=== PATIENT | male | born 1960 | race Caucasian/White ===

== ENCOUNTER 2017-08-01 10:10 | Emergency (ER) | payer MEDICAID ==
[~2017-08-01] VITALS: Ht 175.3 cm; Wt 81.6 kg
[2017-08-01 10:10] VITALS: BP_SYST 128
[2017-08-01] MEDS ORDERED: KETOROLAC TROMETHAMINE 60 MG/2 ML VIAL IM ONE (11:15)
[2017-08-01 11:48] VITALS: BP_SYST 145
== END 2017-08-01 11:47 | disposition home or self-care (01) ==
LOC: SED 10:10
DX: L03.312 Cellulitis of back [any part except buttock and flank] (principal); R60.0 Localized edema; F17.290 Nicotine dependence, other tobacco product, uncomplicated
CPT/HCPCS: 96372; 99283; J1885

== ENCOUNTER 2019-11-30 19:14 | Inpatient (IN) | payer MEDICAID ==
[~2019-11-30] VITALS: Ht 175.3 cm; Wt 68.0 kg
[2019-11-30 19:24] VITALS: BP_SYST 113
[2019-11-30 20:58] LABS: BASOPHILS % (AUTO) 0.4 % (0.0-2.0); EOSINOPHILS # (AUTO) 0.1 K/uL (0.0-0.4); EOSINOPHILS % (AUTO) 0.7 % (0.0-4.0); HEMATOCRIT 42.2 % (36-54); HEMOGLOBIN 14.6 g/dL (14.0-18.0); LYMPHOCYTES # (AUTO) 1.8 K/uL (1.0-5.5); MEAN CORPUSCULAR HEMOGLOBIN 32 pg (27-31); MEAN CORPUSCULAR HGB CONC 35 % (32-36); MEAN CORPUSCULAR VOLUME 92 fL (79.0-98.0); MONOCYTES # (AUTO) 0.8 K/uL (0.0-1.0); MONOCYTES % (AUTO) 8.4 % (1.7-9.3); NEUTROPHILS # (AUTO) 7.2 K/uL (1.8-7.7); NEUTROPHILS % (AUTO) 72.5 % (40.0-70.0); PLATELET COUNT (AUTO) 141 K/uL (130-430); RED CELL DISTRIBUTION WIDTH 15.3 % (9.0-15.0)
[2019-11-30 21:19] LABS: PROTHROMBIN TIME 10.5 SECS (9.5-12.5)
[2019-11-30 21:25] LABS: CALCIUM 8.8 mg/dL (8.4-11.0); CREATININE 0.76 mg/dL (0.55-1.30)
[2019-11-30 21:38] LABS: ALBUMIN 3.4 g/dL (3.4-4.8); TOTAL BILIRUBIN 1.4 mg/dL (0.0-1.0)
[2019-11-30] MEDS ORDERED: PANTOPRAZOLE SODIUM 80 MG in NS 100 ML IV ONE (22:30)
[2019-11-30 22:45] LABS: BILIRUBIN,URINE 2+ (NEGATIVE); BLOOD, URINE NEGATIVE (NEGATIVE); COLOR,URINE ORANGE (YELLOW); GLUCOSE,URINE NEGATIVE (NEGATIVE); KETONES,URINE 2+ (NEGATIVE); LEUKOCYTE ESTERASE ,URINE NEGATIVE (NEGATIVE); NITRITE, URINE POSITIVE (NEGATIVE); PROTEIN URINE 2+ (NEGATIVE)
[2019-11-30] MEDS ORDERED: PANTOPRAZOLE SODIUM 40 MG/VIAL (PROTONIX) ONE ×3 (23:03)
[2019-11-30] MEDS: PANTOPRAZOLE SODIUM 40 MG in NS 50 ML IV SCH (23:08)
[2019-11-30 23:15] LABS: BACTERIA,URINE FEW /HPF (None Seen); CLARITY/URINE SLIGHTLY HAZY (CLEAR); HYALINE CASTS, URINE 0-10 /LPF (None Seen); RBC,URINE 0-3 /HPF (0-3); WBC,URINE 0-3 /HPF (0-3)
[2019-11-30] MEDS ORDERED: MAGNESIUM SULFATE 50 ML IV ONE (23:15)
[2019-11-30] MEDS ORDERED: POTASSIUM CHLORIDE 20 MEQ TAB.PRT.SR PO ONE (23:15)
[2019-11-30] MEDS ORDERED: ONDANSETRON HCL 4 MG/2 ML VIAL IVP ONE (23:15)
[2019-11-30 23:19] LABS: BARBITURATE, URINE NEGATIVE (NEG <=200); BENZODIAZEPINE, URINE NEGATIVE (NEG <=150); CANNABINOID, URINE NEGATIVE (NEG <=50); COCAINE, URINE NEGATIVE (NEG <=150); METHAMPHETAMINES SCREEN,URINE NEGATIVE (NEG <=500); OPIATE, URINE NEGATIVE (NEG <=100); PHENCYCLIDINE SCREEN,URINE NEGATIVE (NEG <=25); UR TRICYCLIC ANTIDEPRESSANTS NEGATIVE (NEG <=300); URINE AMPHETAMINE NEGATIVE (NEG <=500); URINE METHADONE NEGATIVE (NEG <=200); URINE OXYCODONE SCREEN NEGATIVE (NEG <=100); URINE PROPOXYPHENE SCREEN NEGATIVE (NEG <=300)
[2019-11-30] MEDS ORDERED: cefTRIAXone 1 GM in D5W 50 ML IV ONE (23:30)
[2019-11-30] MEDS ORDERED: ALBUTEROL MDI INHALATION 8 GM INH INH PRN (23:30)
[2019-11-30] MEDS ORDERED: ACETAMINOPHEN 325 MG SUPP.RECT RC ONE (23:30)
[2019-11-30] MEDS ORDERED: ONDANSETRON HCL 4 MG/2 ML VIAL IVP PRN (23:30)
[2019-12-01] MEDS ORDERED: PANTOPRAZOLE SODIUM 40 MG/VIAL (PROTONIX) ONE ×2 (00:04→05:51)
[2019-12-01] MEDS: LORazepam 2 MG/ML VIAL IVP PRN (00:29)
[2019-12-01] MEDS ORDERED: cefTRIAXone 1 GM VIAL ONE (00:39)
[2019-12-01] MEDS: PANTOPRAZOLE SODIUM 40 MG in NS 50 ML IV SCH ×6 (03:30→15:45)
[2019-12-01 05:15] LABS: BASOPHILS # (AUTO) 0.1 K/uL (0.0-0.2); BASOPHILS % (AUTO) 0.8 % (0.0-2.0); EOSINOPHILS # (AUTO) 0.2 K/uL (0.0-0.4); EOSINOPHILS % (AUTO) 2.7 % (0.0-4.0); HEMATOCRIT 41.4 % (36-54); HEMOGLOBIN 14.2 g/dL (14.0-18.0); LYMPHOCYTES # (AUTO) 2.2 K/uL (1.0-5.5); LYMPHOCYTES % (AUTO) 25.2 % (20.5-51.5); MEAN CORPUSCULAR HEMOGLOBIN 32 pg (27-31); MEAN CORPUSCULAR HGB CONC 34 % (32-36); MEAN CORPUSCULAR VOLUME 92 fL (79.0-98.0); MONOCYTES # (AUTO) 0.7 K/uL (0.0-1.0); MONOCYTES % (AUTO) 7.7 % (1.7-9.3); NEUTROPHILS # (AUTO) 5.6 K/uL (1.8-7.7); NEUTROPHILS % (AUTO) 63.6 % (40.0-70.0); PLATELET COUNT (AUTO) 135 K/uL (130-430); RED CELL DISTRIBUTION WIDTH 15.2 % (9.0-15.0); WHITE BLOOD COUNT (AUTO) 8.7 K/uL (4.8-10.8)
[2019-12-01 05:34] LABS: ALBUMIN 3.2 g/dL (3.4-4.8); BILIRUBIN,DIRECT 0.6 mg/dL (0.0-0.3); CALCIUM 8.5 mg/dL (8.4-11.0); POTASSIUM 4.2 mmol/L (3.5-5.1); TOTAL BILIRUBIN 1.6 mg/dL (0.0-1.0)
[2019-12-01 05:39] LABS: CREATININE 0.84 mg/dL (0.55-1.30)
[2019-12-01 07:44] LABS: THYROID STIMULATING HORMONE 2.11 uIu/mL (0.34-4.82)
[2019-12-01] MEDS ORDERED: FOLIC ACID 1 MG, THIAMINE HCL 100 MG, MAGNESIUM SULFATE 1 GM, MVI 10 ML in NACL 0.9% 1,... IV SCH (08:00)
[2019-12-01 08:30] VITALS: BP_SYST 124
[2019-12-01 11:27] VITALS: BP_SYST 131
[2019-12-01 12:30] VITALS: BP_SYST 124
[2019-12-01 15:26] LABS: HEMATOCRIT 41.6 % (36-54); HEMOGLOBIN 14.5 g/dL (14.0-18.0)
[2019-12-01 15:40] VITALS: BP_SYST 147
[2019-12-01] MEDS: THIAMINE HCL 100 MG, MAGNESIUM SULFATE 1 GM in NS 100 ML IV SCH (15:43)
[2019-12-01] MEDS: FOLIC ACID 1 MG, MVI 10 ML in NACL 0.9% 1,000 ML IV SCH (15:44)
[2019-12-01] MEDS: POTASSIUM CHLORIDE 10 MEQ in NACL 0.9% 1,000 ML IV SCH (17:26)
[2019-12-01 20:00] VITALS: BP_SYST 118; BP_SYST 188
[2019-12-01] MEDS: chlordiazePOXIDE HCL 25 MG CAPSULE PO SCH (21:30)
[2019-12-02 00:05] VITALS: BP_SYST 142
[2019-12-02] MEDS: LORazepam 2 MG/ML VIAL IVP PRN (01:52)
[2019-12-02 07:54] LABS: ALBUMIN 2.7 g/dL (3.4-4.8); CALCIUM 7.9 mg/dL (8.4-11.0); CREATININE 0.59 mg/dL (0.55-1.30); POTASSIUM 3.1 mmol/L (3.5-5.1); TOTAL BILIRUBIN 1.6 mg/dL (0.0-1.0)
[2019-12-02 08:00] VITALS: BP_SYST 126
[2019-12-02] MEDS ORDERED: PANTOPRAZOLE SODIUM 40 MG/VIAL (PROTONIX) IVP SCH (09:00)
[2019-12-02 09:19] LABS: HEMATOCRIT 37.9 % (36-54); HEMOGLOBIN 12.9 g/dL (14.0-18.0)
[2019-12-02] MEDS ORDERED: POTASSIUM CHLORIDE 40 MEQ, LIDOCAINE JECT 2% PF 100 MG 50 MG in NS 250 ML IV ONE (09:30)
[2019-12-02] MEDS ORDERED: PANTOPRAZOLE SODIUM 40 MG/VIAL (PROTONIX) IVP ONE (09:30)
[2019-12-02] MEDS: chlordiazePOXIDE HCL 25 MG CAPSULE PO SCH ×3 (09:52→21:44)
[2019-12-02] MEDS: POTASSIUM CHLORIDE 10 MEQ in NACL 0.9% 1,000 ML IV SCH (10:49)
[2019-12-02 12:58] VITALS: BP_SYST 105
[2019-12-02] MEDS ORDERED: ACETAMINOPHEN 325 MG TABLET PO PRN (13:45)
[2019-12-02] MEDS: THIAMINE HCL 100 MG, MAGNESIUM SULFATE 1 GM in NS 100 ML IV SCH (15:42)
[2019-12-02] MEDS: FOLIC ACID 1 MG, MVI 10 ML in NACL 0.9% 1,000 ML IV SCH (15:46)
[2019-12-02 16:57] VITALS: BP_SYST 113
[2019-12-02 20:00] VITALS: BP_SYST 128
[2019-12-02] MEDS: GABAPENTIN 100 MG CAPSULE PO SCH (21:45)
[2019-12-02] MEDS: PANTOPRAZOLE SODIUM 40 MG/VIAL (PROTONIX) IVP SCH (23:07)
[2019-12-02 23:44] VITALS: BP_SYST 133
[2019-12-03] MEDS: POTASSIUM CHLORIDE 10 MEQ in NACL 0.9% 1,000 ML IV SCH ×3 (02:56→19:41)
[2019-12-03] MEDS ORDERED: KETOROLAC TROMETHAMINE 15 MG VIAL IVP SCH (05:30)
[2019-12-03] MEDS ORDERED: fentaNYL CITRATE/PF 100 MCG/2 ML AMP ONE (07:09)
[2019-12-03] MEDS ORDERED: MIDAZOLAM HCL 5 MG/5 ML VIAL ONE (07:09)
[2019-12-03] MEDS ORDERED: SIMETHICONE 40 MG/0.6 ML ML ONE (07:10)
[2019-12-03] MEDS: MEPERIDINE HCL/PF 100 MG/ML AMP ONE ×2 (07:39→07:44)
[2019-12-03] MEDS: MIDAZOLAM HCL 5 MG/5 ML VIAL ONE ×3 (07:39→07:49)
[2019-12-03] MEDS ORDERED: DIPHENHYDRAMINE INJ 50 MG/ML VIAL ONE (07:51)
[2019-12-03 07:55] LABS: HEMATOCRIT 36.1 % (36-54); HEMOGLOBIN 12.6 g/dL (14.0-18.0)
[2019-12-03 08:00] VITALS: BP_SYST 107
[2019-12-03 08:05] LABS: CREATININE 0.56 mg/dL (0.55-1.30); POTASSIUM 3.4 mmol/L (3.5-5.1)
[2019-12-03 08:10] LABS: INR 1.1 (0.80-1.20); PROTHROMBIN TIME 11.3 SECS (9.5-12.5)
[2019-12-03] MEDS: chlordiazePOXIDE HCL 25 MG CAPSULE PO SCH ×3 (09:52→20:53)
[2019-12-03] MEDS: PANTOPRAZOLE SODIUM 40 MG/VIAL (PROTONIX) IVP SCH ×2 (09:52→20:54)
[2019-12-03] MEDS: GABAPENTIN 100 MG CAPSULE PO SCH ×2 (09:52→20:54)
[2019-12-03 11:21] VITALS: BP_SYST 108
[2019-12-03 15:50] VITALS: BP_SYST 111
[2019-12-03] MEDS: THIAMINE HCL 100 MG, MAGNESIUM SULFATE 1 GM in NS 100 ML IV SCH (17:32)
[2019-12-03] MEDS: FOLIC ACID 1 MG, MVI 10 ML in NACL 0.9% 1,000 ML IV SCH (17:34)
[2019-12-03 20:00] VITALS: BP_SYST 134
[2019-12-04 08:00] VITALS: BP_SYST 130
[2019-12-04] MEDS: GABAPENTIN 100 MG CAPSULE PO SCH (08:39)
[2019-12-04] MEDS: PANTOPRAZOLE SODIUM 40 MG/VIAL (PROTONIX) IVP SCH (08:39)
[2019-12-04] MEDS: chlordiazePOXIDE HCL 25 MG CAPSULE PO SCH ×2 (08:39→15:17)
[2019-12-04] MEDS ORDERED: POTASSIUM CHLORIDE 10 MEQ TAB.PRT.SR PO ONE (11:00)
[2019-12-04] MEDS: POTASSIUM CHLORIDE 10 MEQ in NACL 0.9% 1,000 ML IV SCH (12:45)
[2019-12-04 12:49] VITALS: BP_SYST 129
[2019-12-04] MEDS ORDERED: PANTOPRAZOLE SODIUM 40 MG TAB PO SCH ×2 (16:00→21:00)
[2019-12-04] MEDS ORDERED: DEXT30DR6 EACH EYE (16:09)
[2019-12-04] MEDS ORDERED: GABA-531 PO (16:09)
[2019-12-04] MEDS ORDERED: ONDA4TAB5 PO (16:09)
[2019-12-04] MEDS ORDERED: TRAM50TA2 PO (16:09)
[2019-12-04] MEDS ORDERED: TAMS-11 PO (16:09)
[2019-12-04] MEDS ORDERED: MULT-976 PO (16:09)
[2019-12-04] MEDS ORDERED: PRO40 PO (16:09)
[2019-12-04] MEDS ORDERED: MELA3TAB64 PO (16:09)
[2019-12-04] MEDS ORDERED: NOR10 PO (16:09)
[2019-12-04] MEDS ORDERED: DOCU250C14 PO (16:09)
[2019-12-04] MEDS ORDERED: LACT10SO6 PO (16:09)
[2019-12-04] MEDS ORDERED: FER300L PO (16:09)
[2019-12-04] MEDS ORDERED: VITA1CAP PO (16:09)
[2019-12-04 16:22] VITALS: BP_SYST 127
[2019-12-04 18:42] VITALS: BP_SYST 130
[2019-12-04] MEDS ORDERED: GABAPENTIN 100 MG CAPSULE PO SCH (21:00)
[2019-12-05] MEDS ORDERED: FOLIC ACID 1 MG TABLET PO SCH (09:00)
[2019-12-05] MEDS ORDERED: THIAMINE HCL 100 MG TABLET PO SCH (09:00)
== END 2019-12-04 20:15 | DRG 720 ==
LOC: SED 19:14 → STU 23:38
PROVIDERS: ADMIT Internal Medicine; ATTEND Internal Medicine
PROC: 0DB68ZX Excision of Stomach, Via Natural or Artificial Opening Endoscopic, Diagnostic (ICD-10-PCS; principal; 2019-12-03 07:30)
DX: A41.9 Sepsis, unspecified organism (principal); E87.8 Other disorders of electrolyte and fluid balance, not elsewhere classified; K29.71 Gastritis, unspecified, with bleeding; K70.30 Alcoholic cirrhosis of liver without ascites; E87.1 Hypo-osmolality and hyponatremia; G62.9 Polyneuropathy, unspecified; B19.20 Unspecified viral hepatitis C without hepatic coma; F10.20 Alcohol dependence, uncomplicated; K20.9 Esophagitis, unspecified; K44.9 Diaphragmatic hernia without obstruction or gangrene; I10 Essential (primary) hypertension; E87.6 Hypokalemia; N39.0 Urinary tract infection, site not specified; Z79.899 Other long term (current) drug therapy
CPT/HCPCS: 36415; 43239; 76700-TC; 80048; 80053; 80076; 80307; 81000-TC; 82272; 83690-TC; 83735-TC; 83880; 84443-TC; 84484; 85018-TC; 85025; 85610-TC; 85730-TC; 86886; 86900; 86901; 87040-TC; 87086; 88305; 88312; 88313; 96365; 96366; 96368; 96375; 99285; C9113; G0378; G0482; J0696; J1200; J1885; J2060; J2175; J2250; J2405; J3010; J3411; J3475; J3480; J3490; J7030; J7050; J7060

== ENCOUNTER 2022-07-02 02:34 | Emergency (ER) | payer MEDICAID ==
[~2022-07-02] VITALS: Ht 175.3 cm; Wt 74.8 kg
[~2022-07-02 02:34] MED LIST: DEXT30DR6 EACH EYE; DOCU250C14 PO; FER300L PO; GABA-531 PO; LACT10SO6 PO; MELA3TAB41 PO; MULT-976 PO; NOR10 PO; ONDA4TAB5 PO; PRO40 PO; TAMS-11 PO; TRAM50TA2 PO; VITA1CAP PO
--- NOTE | 2022-07-02 02:45 | NUR ---
DR. ELLSWORTH AT BEDSIDE FOR MSE
[2022-07-02 02:46] VITALS: BP_SYST 140
--- NOTE | 2022-07-02 02:55 | NUR ---
Note undone in EDM - 07/02/22 at 0401 by [id number] REMOVED OLD WALLACE CATH, NOTED 250 OF GROSS HEMATURIA URINE OUTPUT. PT CLEANED AND POSITION FOR COMFORT. NOTED STAGE 2 ON TAD BUTTOCKS AND COCCYX AREA. EXCORIATION AND SKIN TEAN TO BACK OF HIS THIGG AREA. ALSO NOTED REDNESS AND EXCORIATION TO SCROTUM AND INNER THIGHT.
--- NOTE | 2022-07-02 03:00 | NUR ---
Patient to ER bed 03 for evaluation. Side rails up.
--- NOTE | 2022-07-02 03:15 | NUR ---
PT BIBA FROM [facility] WITH C/O LEFT LEG PAIN. PT STATES THAT THE PAIN STARTED A COUPLE OF DAYS AGO WITHOUT REASON. PT DENIES TRAUMA TO THE LEG. PT STATES THAT THE PAIN IS 10/10 AND WORSENS WITH MOVEMENT. PT IS NON-AMBULATORY AT BASELINE. PT ARRIVED WITH WALLACE IN PLACE WITH ISABEL COLORED URINE. LEFT LEG PRESENTS WITH SEVERE EDEMA AND ERYTHEMA. SAFETY PRECAUTIONS IN PLACE.
--- NOTE | 2022-07-02 03:34 | NUR ---
X-ray being done at bedside.
--- NOTE | 2022-07-02 03:45 | NUR ---
REMOVED OLD WALLACE CATH, NOTED 250 OF GROSS HEMATURIA URINE OUTPUT. PT CLEANED AND POSITION FOR COMFORT. NOTED STAGE 2 ON TAD BUTTOCKS AND COCCYX AREA. EXCORIATION AND SKIN TEAN TO BACK OF HIS THIGG AREA. ALSO NOTED REDNESS AND EXCORIATION TO SCROTUM AND INNER THIGHT.
--- NOTE | 2022-07-02 03:58 | NUR ---
WALLACE CATH FR 16 USING ASEPTIC TECHNIQUE. NOTED ABOUT 10CC URINE OUTPUT, YELLOW IN COLOR WITH SEDIMENTS. PT TOLERATED WELL. WILL COLLECT URINE WHEN THERE IS ENOUGH SPECIMEN.
--- NOTE | 2022-07-02 04:02 | NUR ---
Lab at bedside for draw.
[2022-07-02 04:21] LABS: HEMOGLOBIN 12.5 g/dL (14.0-18.0); MEAN CORPUSCULAR HEMOGLOBIN 30 pg (27-31); MEAN CORPUSCULAR HGB CONC 35 % (32-36)
--- NOTE | 2022-07-02 04:21 | NUR ---
Report given to Chan LINCOLN to assume care.
[2022-07-02 04:31] LABS: BASOPHILS # (AUTO) 0.1 K/uL (0.0-0.2); BASOPHILS % (AUTO) 0.6 % (0.0-2.0); EOSINOPHILS # (AUTO) 0.3 K/uL (0.0-0.4); EOSINOPHILS % (AUTO) 3.7 % (0.0-4.0); HEMATOCRIT 36.1 % (36-54); LYMPHOCYTES # (AUTO) 2.9 K/uL (1.0-5.5); LYMPHOCYTES % (AUTO) 32.3 % (20.5-51.5); MEAN CORPUSCULAR VOLUME 88 fL (79.0-98.0); MONOCYTES # (AUTO) 0.9 K/uL (0.0-1.0); MONOCYTES % (AUTO) 9.6 % (1.7-9.3); NEUTROPHILS # (AUTO) 4.8 K/uL (1.8-7.7); NEUTROPHILS % (AUTO) 53.8 % (40.0-70.0); PLATELET COUNT (AUTO) 71 K/uL (130-430); RED BLOOD CELL COUNT(AUTO) 4.13 MIL/uL (4.2-6.2); RED CELL DISTRIBUTION WIDTH 16.2 % (9.0-15.0)
[2022-07-02 04:33] LABS: ANION GAP 8 (5-15); CALCIUM 7.8 mg/dL (8.4-11.0); CHLORIDE 103 mmol/L (98-107); CREATININE 0.81 mg/dL (0.55-1.30); GLUCOSE 105 mg/dL (70-99); POTASSIUM 3.1 mmol/L (3.5-5.1); SODIUM SERUM 140 mmol/L (136-145); UREA NITROGEN, BLOOD 17 mg/dL (8-21)
[2022-07-02 04:37] LABS: PROTHROMBIN TIME 10.4 SECS (9.5-12.5)
[2022-07-02 04:41] LABS: GFR AFRICAN AMERICAN 124 mL/min (>90)
[2022-07-02 04:46] LABS: ALANINE AMINOTRANSFERASE 126 U/L (12-78); ALBUMIN 2.6 g/dL (3.4-4.8); ALCOHOL, BLOOD 207 mg/dL (<10); ASPARTATE AMINOTRANSFERASE 306 U/L (10-37); PHOSPHORUS 2.8 mg/dL (2.7-4.5); TOTAL BILIRUBIN 0.9 mg/dL (0.0-1.0)
--- NOTE | 2022-07-02 05:04 | NUR ---
Patient resting comfortably with side rails raised. Nad noted at this time.
[2022-07-02 05:51] LABS: BILIRUBIN,URINE 1+ (NEGATIVE); BLOOD, URINE 3+ (NEGATIVE); CLARITY/URINE CLOUDY (CLEAR); COLOR,URINE YELLOW (YELLOW); GLUCOSE,URINE TRACE (NEGATIVE); KETONES,URINE TRACE (NEGATIVE); LEUKOCYTE ESTERASE ,URINE 2+ (NEGATIVE); NITRITE, URINE NEGATIVE (NEGATIVE); PH,URINE 6.5 (5.0-8.0); PROTEIN URINE 2+ (NEGATIVE)
[2022-07-02 05:56] LABS: UROBILINOGEN,URINE >=8 (0.2-1.0)
[2022-07-02] MEDS ORDERED: CEPH-548 PO (06:00)
[2022-07-02 06:14] LABS: BACTERIA,URINE MODERATE /HPF (None Seen); RBC,URINE 50-80 /HPF (0-3)
[2022-07-02 07:00] VITALS: BP_SYST 123
--- NOTE | 2022-07-02 07:00 | NUR ---
Patient given written and verbal discharge instructions and verbalizes understanding. ER MD discussed with patient the results and treatment provided. Patient in stable condition. ID arm band removed. Rx ofcephalexin given. Patient educated on pain management and to follow up with PMD. Pain Scale 3/10. Opportunity for questions provided and answered. Medication side effect fact sheet provided. Patient A/Ox4, VSS, resp even and unlabored. NAD noted at this time.
== END 2022-07-02 07:00 | disposition home or self-care (01) ==
LOC: SED 02:34
DX: R74.01 Elevation of levels of liver transaminase levels (principal); D69.6 Thrombocytopenia, unspecified; R06.02 Shortness of breath; M79.605 Pain in left leg; F10.129 Alcohol abuse with intoxication, unspecified; F19.10 Other psychoactive substance abuse, uncomplicated; Y90.6 Blood alcohol level of 120-199 mg/100 ml
CPT/HCPCS: 99285; 71045; 80053; 81000; 83735; 84100; 85025; 85610; 85730; 86886; 86900; 86901; 87086; 84484; 87186; 36415; 93005; G0482